=== PATIENT | female | born 1940 | race Caucasian/White ===

== ENCOUNTER → 2021-12-08 | Day surgery (SDC) | payer BC | END | disposition home or self-care (01) | LOC: JRADUS-SUR 08:49 | PROVIDERS: ATTEND Internal Medicine | PROC: 0H9U3ZX Drainage of Left Breast, Percutaneous Approach, Diagnostic (ICD-10-PCS; principal; 2021-12-08) | DX: C50.912 Malignant neoplasm of unspecified site of left female breast (principal) | CPT/HCPCS: 19083; 87899; 88305-TC; 88342-TC; A4648 ==

== ENCOUNTER 2022-01-11 04:14 | Day surgery (SDC) | payer BC ==
[2022-01-11 10:55] VITALS: BMI 25.4
[2022-01-11] MEDS ORDERED: ISOSULFAN BLUE 50 MG/5 ML VIAL SQ ONE (13:24)
[2022-01-11] MEDS ORDERED: PROPOFOL 20 ML ONE (13:53)
[2022-01-11] MEDS ORDERED: LIDOCAINE HCL/PF 2% SDV 5ML VIAL ONE (13:54)
[2022-01-11] MEDS ORDERED: ceFAZolin SODIUM 1 GM VIAL ONE (13:54)
[2022-01-11] MEDS ORDERED: DEXAMETHASONE SOD PHOSPHATE 4 MG/1 ML VIAL ONE (13:54)
[2022-01-11] MEDS ORDERED: LIDOCAINE HCL 1%, 10 MG/ML (20ML VIAL) INF ONE ×2 (14:00)
[2022-01-11] MEDS ORDERED: LACTATED RINGERS SOLUTION 1,000 ML IV SCH (15:30)
[2022-01-11] MEDS ORDERED: oxyCODONE HCL 5 MG TABLET PO PRN (15:30)
[2022-01-11] MEDS ORDERED: ONDANSETRON 4 MG/2 ML VIAL IVPUSH PRN (15:30)
[2022-01-11] MEDS ORDERED: oxyCODONE HCL 5 MG TABLET ONE (16:12)
[2022-01-11 16:24] VITALS: TEMP 97.2
[2022-01-11 17:06] VITALS: BP 140/64; PULSE 88
== END 2022-01-11 17:15 | disposition home or self-care (01) ==
LOC: JASU-SURG 04:14
PROVIDERS: ATTEND Surgery
PROC: 0HBU0ZZ Excision of Left Breast, Open Approach (ICD-10-PCS; principal; 2022-01-11 12:00)
DX: D05.12 Intraductal carcinoma in situ of left breast (principal)
CPT/HCPCS: 78195-TC; 88307-TC; 94760; A9541

== ENCOUNTER 2022-02-08 04:14 | Day surgery (SDC) | payer BC ==
[2022-02-04 17:05] VITALS: BMI 25.4
[2022-02-08] MEDS ORDERED: LIDOCAINE HCL/PF 2% SDV 5ML VIAL ONE (07:27)
[2022-02-08] MEDS ORDERED: PROPOFOL 20 ML ONE (07:28)
[2022-02-08] MEDS ORDERED: ceFAZolin SODIUM 1 GM VIAL IVPB ONE (09:38)
[2022-02-08] MEDS ORDERED: ceFAZolin SODIUM 1 GM VIAL ONE (09:38)
[2022-02-08] MEDS ORDERED: ONDANSETRON 4 MG/2 ML VIAL IVPUSH PRN (09:54)
[2022-02-08] MEDS ORDERED: oxyCODONE HCL 5 MG TABLET PO PRN (09:54)
[2022-02-08] MEDS ORDERED: LACTATED RINGERS SOLUTION 1,000 ML IV SCH (10:00)
[2022-02-08] MEDS ORDERED: LIDOCAINE HCL 1%, 10 MG/ML (20ML VIAL) INF ONE (10:00)
[2022-02-08 12:05] VITALS: TEMP 97.7
[2022-02-08] MEDS ORDERED: ONDANSETRON 4 MG/2 ML VIAL ONE (12:37)
[2022-02-08] MEDS ORDERED: ONDANSETRON 4 MG/2 ML VIAL IVPB ONE (12:45)
[2022-02-08 15:28] VITALS: BP 145/81; PULSE 80
== END 2022-02-08 14:05 | disposition home or self-care (01) ==
LOC: JASU-SURG 04:14
PROVIDERS: ATTEND Surgery
PROC: 0HBU0ZZ Excision of Left Breast, Open Approach (ICD-10-PCS; principal; 2022-02-08 09:00)
DX: C50.912 Malignant neoplasm of unspecified site of left female breast (principal)
CPT/HCPCS: 88307-TC; 88342-TC; 94760

== ENCOUNTER 2023-03-29 15:00 | Emergency (ER) | payer BC ==
[2023-03-29 15:14] VITALS: BP 148/75; PULSE 84; RESP 18; TEMP 98.2; BMI 27.4
== END 2023-03-29 17:20 | disposition home or self-care (01) ==
LOC: JER 15:00
DX: I82.4Z2 Acute embolism and thrombosis of unspecified deep veins of left distal lower extremity (principal)
CPT/HCPCS: 99282-25

== ENCOUNTER 2024-10-21 09:52 | Emergency (ER) | payer BC ==
[2024-10-21 10:02] VITALS: BP 146/78; PULSE 77; RESP 20; TEMP 98.5; BMI 26.1
[2024-10-21] MEDS ORDERED: MECLIZINE HCL 12.5 MG TABLET ONE (11:36)
[2024-10-21] MEDS ORDERED: ACETAMINOPHEN INJECTION 100 ML ONE (11:37)
[2024-10-21 11:44] LABS: BASO % 0.7 % (0-2.0); HEMATOCRIT 39.9 % (32.4-45.2); HEMOGLOBIN 13.2 GM/dL (10.7-15.3); LYMPH % 16.4 % (8-40); MCH 31.2 pg (25.7-33.7); MCHC 33.2 g/dl (32.0-36.0); MEAN PLT VOLUME 8.2 fl (7.5-11.1); MONO % 7.4 % (3.8-10.2); NEUT % 74.5 % (42.8-82.8); PLATELET COUNT 147 10^3/uL (134-434); RBC 4.25 M/mm3 (3.60-5.2); RDW 13.2 % (11.6-15.6); WHITE BLOOD COUNT 5.2 K/mm3 (4.0-10.0)
[2024-10-21] MEDS: MECLIZINE HCL 12.5 MG TABLET PO ONE (11:46)
[2024-10-21 11:54] LABS: INR 1.06 (0.83-1.09)
[2024-10-21 11:57] LABS: ACTIVATED PTT 27.7 SECONDS (25.2-36.5)
[2024-10-21] MEDS: ACETAMINOPHEN 1000 MG/100 ML BAG IVPB ONE (12:00)
[2024-10-21 12:11] LABS: POTASSIUM 3.7 mmol/L (3.5-5.1)
[2024-10-21 12:13] LABS: ALBUMIN 3.5 g/dl (3.4-5.0); CALCIUM 9.3 mg/dL (8.5-10.1)
[2024-10-21 12:14] LABS: BLOOD UREA NITROGEN 25.6 mg/dL (7-18)
[2024-10-21 12:17] LABS: CREATININE 0.9 mg/dL (0.55-1.3)
[2024-10-21 12:18] LABS: BILIRUBIN,TOTAL 0.4 mg/dL (0.2-1); TOT PROT 6.8 g/dl (6.4-8.2)
== END 2024-10-21 15:03 | disposition left against medical advice (07) ==
LOC: JER 09:52
PROC: 3E033NZ Introduction of Analgesics, Hypnotics, Sedatives into Peripheral Vein, Percutaneous Approach (ICD-10-PCS; principal; 2024-10-21)
DX: R42 Dizziness and giddiness (principal); R51.9 Headache, unspecified; Z20.822 Contact with and (suspected) exposure to COVID-19
CPT/HCPCS: 0241U-QW; 36415; 70450-TC; 70496-TC; 70498-TC; 80053; 85025; 85610; 85730; 93005; 93010; 99285-25; J0131; Q9967